=== PATIENT | female | born 1940 | race Caucasian/White ===

== ENCOUNTER 2025-02-21 11:15 | Outpatient (RCR) | payer MEDICARE, BC, SELFPAY | END 2025-04-27 10:55 | disposition home or self-care (01) | PROVIDERS: PCP Family Medicine; Visit Provider Family Medicine | DX: M62.81 Muscle weakness (generalized) (principal); R39.15 Urgency of urination; Z51.89 Encounter for other specified aftercare | CPT/HCPCS: 97110; 97161 ==